=== PATIENT | male | born 1965 | race Caucasian/White ===

== ENCOUNTER 2019-08-08 08:48 | Day surgery (SDC) | payer OTHER ==
[2019-08-08] MEDS ORDERED: MIDAZOLAM HCL 2 MG/2ML VIAL ONE (11:00)
[2019-08-08] MEDS ORDERED: BUPIVACAINE MPF 0.5% W/EPI INJ 30 ML VIAL ONE (15:00)
[2019-08-08] MEDS ORDERED: HYDROMORPHONE 1 MG/1 ML DISP.SYRIN ONE (15:59)
[2019-08-08] MEDS ORDERED: HYDROCODONE/APAP 10/325MG 1 EA TABLET PO ONE (16:30)
[2019-08-08] MEDS ORDERED: hydrALAZINE HCL IV 20 MG VIAL ONE (16:40)
--- NOTE | 2019-08-08 17:06 | NUR ---
RN NOTES patient received from surgery at this time. Room air, no sob noted, patient denies pain at this time. Patient lying down in bed comfortably at this time.
--- NOTE | 2019-08-08 18:37 | NUR ---
RN CLOSING NOTES Patient awaiting to go home when he feels a little better. Patient is post OP and stated that he will go home soon. Patient denies pain at this time. Bed at the lowest setting, call light within reach, side rails up x2. Patient is with his the whole time. Will give report to NOC RN for guerline bedside.
--- NOTE | 2019-08-08 19:20 | NUR ---
PATIENT DISCHARGED HOME VIA WHEELCHAIR IN STABLE CONDITION. PATIENT ACCOMPANIED BY . NO C/O PAIN OR DISCOMFORT. DISCHARGE INSTRUCTIONS GIVEN AND VERBALIZED GOOD UNDERSTANDING. PERIPHERAL LINE REMOVED, TOLERATED WELL WITH NO ACTIVE BLEEDING. RIGHT KNEE DRESSING INTACT, CLEAN, AND DRY. ALL BELONGINGS TAKEN WITH PATIENT.
== END 2019-08-08 16:00 | disposition home or self-care (01) ==
LOC: DS 08:48 → MED 15:11 → UNDOADMIN 15:11 → DS 16:00 → UNDODISIN 18:30
PROVIDERS: ATTEND Orthopaedic Surgery
DX: M23.8X1 Other internal derangements of right knee (principal); M94.261 Chondromalacia, right knee; M25.561 Pain in right knee
CPT/HCPCS: 0232T; 29881; 88304-TC; 88311-TC; A4217; A6253; G0378; J0360; J0690; J1100; J1170; J1885; J2250; J2405; J2704; J3490